=== PATIENT | male | born 1955 | race Hispanic/Latino ===

== ENCOUNTER 2018-05-20 17:00 | Emergency (ER) | payer OTHER ==
[~2018-05-20] VITALS: Ht 182.9 cm; Wt 102.1 kg
[~2018-05-20 17:00] MED LIST: ASPIR 8181 MG PO; MULTIVITAMIN PO; PLAVIX75 MG PO; TOPROL XL100 MG
[2018-05-20] MEDS ORDERED: LOSARTAN POTAS100 MG PO (17:22)
[2018-05-20] MEDS ORDERED: ZOCOR20 MG PO (17:23)
[2018-05-20] MEDS ORDERED: SODIUM CHLORIDE FLUSH 10 ML SYR INJ PRN (18:15)
[2018-05-20] MEDS: [UNRECOGNIZED DRUG - OTHER] IV STA ×2 (18:25→18:45)
[2018-05-20] MEDS ORDERED: NITROGLYCERIN/D5W 200 MCG/ML 250 ML IV STA (19:23)
== END 2018-05-20 20:45 | disposition other institution (70) ==
LOC: FSED 17:00
DX: R29.810 Facial weakness (principal); R74.0 Nonspecific elevation of levels of transaminase and lactic acid dehydrogenase [LDH]; I10 Essential (primary) hypertension; I25.10 Atherosclerotic heart disease of native coronary artery without angina pectoris; Z86.718 Personal history of other venous thrombosis and embolism; Z95.5 Presence of coronary angioplasty implant and graft
CPT/HCPCS: 70450; 80053; 82553; 84484; 85025; 93005; 99283